=== PATIENT | female | born 1980 ===

== ENCOUNTER 2023-12-13 06:38 | Day surgery (SDC) | payer BC ==
[2023-12-13] VITALS (16 sets, daily range): BP systolic 111–138; BP diastolic 63–88
[~2023-12-13] VITALS: Ht 167.6 cm; Wt 57.3 kg
[~2023-12-13 06:38] MED LIST: CeFAZolin Sodium 2,000 MG VIAL ONE; CeFAZolin Sodium 2,000 MG in NS 100 ML IV SCH; Lactated Ringer's 1,000 ML IV SCH; NS 100 ML IV ONE
--- NOTE | 2023-12-13 06:52 | NUR ---
PT TO [facility] FOR LAPAROSCOPIC HYSTERECTOMY. AT BEDSIDE. CHART REVIEWED. PLAN OF CARE DISCUSSED. QUESTIONS ANSWERED.
[2023-12-13] MEDS ORDERED: CIPR250 PO (07:02)
[2023-12-13] MEDS ORDERED: METR250 (07:02)
[2023-12-13] MEDS ORDERED: BUPR75 (07:03)
[2023-12-13] MEDS ORDERED: Bupivacaine 0.5% HCl 5 MG/ML 30MLVIAL ONE (07:43)
[2023-12-13] MEDS ORDERED: LORazepam 2 MG/ML 1ML Injection IV ONE (07:45)
[2023-12-13] MEDS ORDERED: propofoL 20 ML IV ONE (07:49)
[2023-12-13] MEDS ORDERED: FentaNYL Citrate 50 MCG/ML 2 ML Injection ONE ×2 (07:49→08:53)
[2023-12-13] MEDS ORDERED: Lidocaine HCl 2% 20 ML MDV ONE (07:50)
[2023-12-13] MEDS ORDERED: LORazepam 2 MG/ML 1ML Injection ONE (07:58)
[2023-12-13] MEDS ORDERED: Phenylephrine HCl 100 MCG/ML-NS 10MLSYR (1MG/10ML) ONE (08:53)
[2023-12-13] MEDS ORDERED: Rocuronium Bromide 10 MG/ML 5ML Injection IV ONE (10:08)
[2023-12-13] MEDS ORDERED: Ketorolac Tromethamine 30mg Vial ONE (10:08)
[2023-12-13] MEDS ORDERED: Sugammadex Sodium 200 MG/2ML SDV (100 MG/ML) ONE (10:53)
[2023-12-13] MEDS ORDERED: CeFAZolin Sodium 1000 mg Vial ONE (10:53)
[2023-12-13] MEDS ORDERED: HYDROmorphone HCl/Pf 1MG SYR ONE (10:59)
[2023-12-13] MEDS ORDERED: Ondansetron 4 MG TAB PO PRN (11:15)
[2023-12-13] MEDS ORDERED: OxyCODONE 5 mg/Acetamin 325 mg TABLET PO PRN (11:15)
[2023-12-13] MEDS ORDERED: Promethazine HCl 25 MG Tab PO PRN (11:20)
[2023-12-13] MEDS ORDERED: Lactated Ringer's 1,000 ML IV SCH (11:20)
[2023-12-13] MEDS ORDERED: Simethicone 80 MG Chew PO PRN (11:20)
[2023-12-13] MEDS ORDERED: Naloxone HCl 0.4MG / ML 1ML Vial IV PRN (11:20)
[2023-12-13] MEDS ORDERED: Promethazine HCl 12.5 MG Supp PR PRN (11:20)
[2023-12-13] MEDS ORDERED: Ondansetron HCl 2 MG / ML 2ML Vial IV PRN (11:20)
[2023-12-13] MEDS ORDERED: HYDROmorphone HCl/Pf 1MG SYR IV PRN (11:25)
[2023-12-13] MEDS ORDERED: Ketorolac Tromethamine 30mg Vial IV PRN (11:30)
--- NOTE | 2023-12-13 12:42 | NUR ---
PT ARRIVED TO UNIT FROM PACU SLEEPING SOUNDLY. VSS. SPOUSE BEDSIDE. CALL LIGHT IN REACH.
[2023-12-13] MEDS ORDERED: NS 100 ML IV ONE ×2 (13:51→20:44)
[2023-12-13] MEDS ORDERED: CeFAZolin Sodium 2,000 MG VIAL ONE ×2 (13:51→20:44)
[2023-12-13] MEDS ORDERED: CeFAZolin Sodium 2,000 MG in NS 100 ML IV SCH (14:00)
--- NOTE | 2023-12-13 15:21 | NUR ---
PT DROWSY BUT REQUESTED PAIN MEDS STATED PAIIN WAS 7-8 IN PELVIS AREA AND NAUSEATED. MEDICATED PER ORDERS FOR PAIN W/ 0.5 MG DILAUDID AND 4 MG ZOFRANN IV. PT RETURNED TO SLEEP. SPOUSE BEDSIDE. STATED IT TAKES PT LONG TIME TO FULLY WAKE FROM ANAESTHESIA.
--- NOTE | 2023-12-13 17:18 | NUR ---
SUMMARY NO ACUTE CHANGES SINCE ARRIVING TO UNIT FROM PACU. SPOUSE BEDSIDE. PT WAS VERY SLEEPING UPON ARRIVAL BUT IS STARTING TO BE MORE ALERT. REPOSITIONED TO R SIDE W/PILLOW BEHIND BACK. SMALL AMOUNT SS DRAINAGE NOTED TO ALVAREZ PAD. INCISIONS CDI. MENDEZ CATH DRAINING YELLOW URINE. DID NOT DC DUE TO PT'S SOMNOLENCE. WONDERLY AWARE. CALL LIGHT IN REACH.
[2023-12-13] MEDS ORDERED: MetroNIDAZOLE 500 MG Tab PO SCH (21:00)
[2023-12-13] MEDS ORDERED: Ciprofloxacin 500 MG Tab PO SCH (21:00)
[2023-12-14 02:41] VITALS: BP 96/54
[2023-12-14 05:11] LABS: BASOPHILS ABSOLUTE AUTO 0.01 K/mm3 (0.00-0.23); BASOPHILS PERCENT AUTO 0 % (0-2); EOSINOPHILS PERCENT AUTO 0 % (0-6); Hematocrit 37.5 % (33.0-51.0); Hemoglobin 12.8 g/dL (11.5-16.0); IMMATURE GRAN ABSOLUTE AUTO 0.04 K/mm3 (0.00-0.10); IMMATURE GRAN PERCENT AUTO 0 % (0-1); LYMPHOCYTES ABSOLUTE AUTO 1.17 K/mm3 (0.84-5.20); LYMPHOCYTES PERCENT AUTO 13 % (21-46); MONOCYTES ABSOLUTE AUTO 0.63 K/mm3 (0.16-1.47); MONOCYTES PERCENT AUTO 7 % (4-13); Mean Corpuscular HGB 31.5 pg (26.0-34.0); Mean Corpuscular HGB Conc 34.1 g/dL (31.5-36.5); Mean Corpuscular Volume 92 fL (80-100); NEUTROPHILS ABSOLUTE AUTO 7.51 K/mm3 (1.96-9.15); NEUTROPHILS PERCENT AUTO 80 % (41-73); Platelet Count 211 K/mm3 (150-400); RDW Coefficient Variation 11.6 % (11.7-14.2); RDW Standard Deviation 39.6 fL (35.1-46.3); Red Blood Cell Count 4.06 M/mm3 (3.80-5.20); White Blood Cell Count 9.36 K/mm3 (4.00-11.30)
[2023-12-14 07:16] VITALS: BP 101/56
--- NOTE | 2023-12-14 07:35 | NUR ---
SHIFT SUMMARY NOC. PT POD 1 FOR LAP HYSTER. PT A/OX4 BUT VERY DROWSY, PT RESPONDED TO VERBAL STIMULI WITH EYES CLOSED UNTIL APPROX 0300 THIS AM. LAP SITES ON ABDOMEN C/D/I. PT MEDICATED FOR PAIN, NAUSEA, AND GAS PAIN WITH REPORTED RELIEF. PT ON RA, MINIMAL ORAL INTAKE, AND VOIDING VIA MENDEZ. PT REPORTED BLADDER PAIN EARLY THIS AM, TUBING PARTIALLY UNDER RIGHT THIGH. ASSESSED AND ASSURED TUBING DRAINING ACCURATELY. PT REPORTED RELIEF OF SX. ENCOURAGED DEEP BREATHING AND PROVIDED PT WITH ABDOMINAL BINDER. PT RESTED WITH AT BEDSIDE AND CALL LIGHT IN REACH.
[2023-12-14] MEDS ORDERED: Percocet 5-3251 EACH PO (10:22)
[2023-12-14] MEDS ORDERED: PROM25 PO (10:23)
[2023-12-14] MEDS ORDERED: SIME80CH PO (10:23)
--- NOTE | 2023-12-14 11:22 | NUR ---
DISCHARGE PT EDUCATED ON AND RECEIVED PRINTED DC INSTRUCTIONS AND VERB AN UNDERSTANDING. PT VERB SHE FILLED RX PRIOR TO SURGERY. PT VOIDING SPONTANEOUSLY WITHOUT DIFFICULTY. IV DC'D. PT LEFT WITH ALL PERSONAL BELONGINGS AND WITH SPOUSE AT SIDE TO TAKE HER HOME. PT DECLINED A W/C RIDE OUT.
== END 2023-12-14 11:26 | disposition home or self-care (01) ==
LOC: ORSCMMR 06:38 → ORD 08:00 → SURS 12:30 → ORSCMMR 12-14 11:26
PROVIDERS: Obstetrics & Gynecology
PROC: 0UB74ZZ Excision of Bilateral Fallopian Tubes, Percutaneous Endoscopic Approach (ICD-10-PCS; principal; 2023-12-13 08:00)
PROC: 0UT94ZZ Resection of Uterus, Percutaneous Endoscopic Approach (ICD-10-PCS; principal; 2023-12-13 08:00)
PROC: 0UNF4ZZ Release Cul-de-sac, Percutaneous Endoscopic Approach (ICD-10-PCS; principal; 2023-12-13 08:00)
DX: R10.2 Pelvic and perineal pain (principal); N80.329 Endometriosis of the posterior cul-de-sac, unspecified depth; N83.8 Other noninflammatory disorders of ovary, fallopian tube and broad ligament; F90.9 Attention-deficit hyperactivity disorder, unspecified type; F32.A Depression, unspecified
CPT/HCPCS: 36415; 85025; 86850; 86900; 86901; 88307; 94762; A9270; J0690; J1170; J1885; J2060; J2371; J2405; J2704; J3010; J7120